=== PATIENT | female | born 1955 | race Caucasian/White ===

== ENCOUNTER 2016-06-30 07:19 | Day surgery (SDC) | payer OTHER ==
[~2016-06-30] VITALS: Ht 165.1 cm; Wt 72.1 kg
--- NOTE | 2016-06-30 07:17 | PCM.HPANE ---
Patient Data Date of Service: Jun 30, 2016 Surgeon Admitting Provider: Attending Provider:Vic Parra MD Primary Care Physician:Bianca Kurtz MD Other Provider:Blossom Griffith Anesthesia Reason for Visit Left Ring Finger Mass Ht/WT & BMI Height (Feet): 5 Height (Inches): 5 Weight (Kilograms): 71.21 Body Mass Index 26.00 Allergies Coded Allergies: ibuprofen (Verified Allergy, Unknown, CONFUSION, 06/30/16) Uncoded Allergies: ADHESIVE TAPES (Allergy, Unknown, redness, 06/26/16) Past Anesthesia History Anesthesia History: Denies:: Abnormal Airway, Anesthesia Reactions, Difficult Intubation, Fam Anesthesia Reaction, Fam Malignant Hypertherm, Malignant Hyperthermia Diabetes History Hx Diabetes?: No MRSA MRSA: No Medications Hypertension Medication: No Home Meds Incl Beta Jose: No Reported Medications Triamcinolone Acetonide (Nasacort)10.8 Ml Spray10.8 Ml NS PRN For Congestion 06/26/16 Sumatriptan (Imitrex)100 Mg Qugonn634 Mg PO PRN mirgraines My repeat x1/NTE 200mg/24hrs 06/26/16 Fexofenadine (Lorene Allergy)180 Mg Tphxyb152 Mg PO DAILY Ref 0 06/26/16 Discontinued Reported Medications Multivitamin (Multi Vitamin Daily)1 Each Tablet1 Each PO DAILY 30 Days Ref 0 06/26/16 Ranitidine 300 Mg Qayguar781 Mg PO DAILY Ref 0 06/26/[address] 40 Mg Tablet.dr40 Mg PO DAILY Ref 0 06/26/16 Cetirizine HCl (Zyrtec)10 Mg Dcmrjvw40 Mg PO HS #30 CAPSULE Ref 0 06/26/16 Cetirizine HCl (Zyrtec)10 Mg Ymxulmy66 Mg PO HS #30 CAPSULE Ref 0 05/11/15 Multivitamin (Once Daily)1 Each Tablet1 Each PO DAILY 05/11/15 Ranitidine 300 Mg Swwzajz657 Mg PO DAILY Ref 0 05/11/[address] 40 Mg Tablet.dr40 Mg PO DAILY Ref 0 05/11/15 Triamcinolone Acetonide (Nasacort)10.8 Ml Spray10.8 Ml NS DAILY 05/11/15 Sumatriptan Succinate (Imitrex)50 Mg Lqjgzu03-95 Mg PO Q24 PRN For Headache 01/24/14 History History of ENT Problems?: Yes HEENT History: Positive for:: Sinus Problem Denies:: Abnormal Airway Cataracts Difficult Intubation Dysphagia Hearing Problem Hx of Heart Problems?: Yes Cardiovascular History: Positive for:: Chest Pain (work up in 2013) Denies:: AICD Atrial Fibrillation Cardiac Surgery Congestive Heart Failure Edema Heart Murmur Hypertension Irregular Heartbeat Pacemaker Thrombophlebitis Valvular Heart Disease (echo 2013- ef 60-65%) Other Cardiac History: hx of hemachromatosis, being managed by PCP at [facility] Other History/Comments S/P [place] 2013 w/o intervention. Subsequent (02/01) TTE demonstrates 60-65% EF without WMA. Pt denies interim Sx or requirement for NTG. Hx of Respiratory Problem?: No Respiratory History: Positive for:: Dyspnea (a pressure in my chest with activity) Denies:: Asthma COPD Chest Surgery Cough Emphysema Hemoptysis Oxygen Administration Pneumonia Tuberculosis Use of C-PAP Machine Hx Neurologic Problems?: Yes Neurological History: Positive for:: Dizziness (past hx of) Headaches (migraines weekly) Denies:: Alzheimer's Disease CVA Dementia Multiple Sclerosis Parkinson's Disease Seizures Hx of GI Problems?: Yes Gastrointestinal History: Positive for:: Gall Bladder Disease (removed) Gastroesphageal Reflux Denies:: Cirrhosis Diverticulitis Gastrointestinal Bleeding Heartburn Hepatitis Hiatal Hernia Rectal Bleeding Hx of Problems?: No Genitourinary History: Denies:: HX of Hemodialysis Kidney Stones Urinary Tract Infection HX of Peritoneal Dialysis: No Female Hx: Positive for:: Endometriosis (hysterectomy) Problems with Breasts? (biopsy on Left precancerous) Denies:: Currently (hysterectomy) Pelvic Inflammatory Skin History: Denies:: History Skin Disorders? Pressure Ulcers Hx Musculoskeletal Problems?: Yes Musculoskeletal History: Positive for:: Back Injury (lower back; going to PT ) Musculoskeletal Trauma (left ring finger mass current admission problem) Denies:: Joint Replacement Myasthenia Gravis Hx of Psycho/Social Problems?: Yes Psycho Social History: Positive for:: Anxiety Hx Depression Denies:: Bipolar Disorder Suicide Attempt Hx Surgeries?: Yes (HYSTERECTOMY, GALLBLADDER, BREAST BX X2, R SHOULDER) Hx Any Other Health Problems?: Yes Other History: Positive for:: Cancer (pre-cancerous) Denies:: Endocrine Disease Hospitalization Thyroid Disease History Blood Transfusions: Denies:: Blood Transfuse Reaction Blood Transfusions Hx Diabetes: No Hx Alcohol Use: NoHx Substance Use: No Smoking Status: Never Smoker Have You Smoked inLast 12 mo: No Stop/Bang Treated for Sleep Apnea?: No Do You Have a CPAP Machine?: No P-Blood Pressure: treated: No B- Body Mass Index > 35 kg/m2: No A- Age over 50: Yes N- Neck Large Circumference: No G- Gender Male: No SAMUEL Risk Assessment: Low Risk, <3 Yes SAMUEL Category 4 OutPt Procedure: Yes Risk Assessment Category Category 1A: Patient has history of documented sleep apnea, and HAS NOT received any narcotic, sedative or anesthesia administration during this stay. Category 1B: Patient has history of documented sleep apnea, and HAS received any narcotic , sedative or anesthesia administration during this stay Category 2: Patient has SUSPECTED Obstructive Sleep Apnea, and HAS received any narcotic , sedative or anesthesia administration during this stay. Category 3: Patient has SUSPECTED Obstructive Sleep Apnea and HAS NOT received narcotic, sedative or anesthesia administration during this stay. Category 4: Outpatient in Procedural Areas with known sleep apnea or who screen positive for High Risk via the STOP/BANG questionnaire. Exam Exam General Appearance: Alert, Oriented X3, Cooperative, No Acute Distress HEENT/AIRWAY: MP 2 Lungs: Clear to Auscultation, Normal Air Movement Heart: Exam Unremarkable, Normal S1, Normal S2 Plan Impression Patient chart reviewed, patient interviewed and anesthestic plan with risks, benefits, and alternatives discussed, and informed consent obtained. ASA Physical Status: ASA2 Mod Systemic Disease Anesthetic Plan: GA Bene/Risks/Altern/Consents: Yes HP Complete Prior to Induction: Yes Tutu Moncada DO Jun 30, 2016 07:17
[~2016-06-30 07:19] MED LIST: CETI10CA PO; CeFAZolin Inj 2 GM in IV Premix 1 EACH IV ONE; FEXO180T85 PO; IMI100 PO; MULT-1018 PO; PANT40TA3 PO; RANI300C PO; TRIA10.8 NS
[2016-06-30] MEDS ORDERED: fentaNYL-PF 50 mCg/mL 2 mL Inj ONE (07:20)
[2016-06-30] MEDS ORDERED: Dexamethasone 4 mg/mL Inj ONE (07:20)
[2016-06-30] MEDS ORDERED: Propofol 10,000 mCg/mL 20 mL Inj ONE (07:20)
[2016-06-30] MEDS ORDERED: Ondansetron 2 mg/mL 2 mL Inj ONE (07:20)
[2016-06-30] MEDS: Lactated Ringer's 1,000 ML IV SCH ×2 (07:33→09:00)
[2016-06-30 07:45] VITALS: BP 137/78; PULSE 90; RESP 14; O2SAT 97
[2016-06-30] MEDS ORDERED: Lactated Ringer's 500 ML IV PRN (08:37)
[2016-06-30] MEDS ORDERED: Lactated Ringer's 1,000 ML IV SCH (08:37)
[2016-06-30] MEDS ORDERED: Dexamethasone 4 mg/mL Inj IVPUSH PRN (08:40)
[2016-06-30] MEDS ORDERED: HYDROmorphone 1 mg/mL Inj IVPUSH PRN (08:40)
[2016-06-30] MEDS ORDERED: fentaNYL-PF 50 mCg/mL 2 mL Inj IVPUSH PRN (08:40)
[2016-06-30] MEDS ORDERED: Labetalol 5 mg/mL 4 mL Inj IV PRN (08:40)
[2016-06-30] MEDS ORDERED: Phenylephrine 10,000 mCg/mL Inj IVPUSH PRN (08:40)
[2016-06-30] MEDS ORDERED: EPHEDrine Sulfate 50 mg/mL Inj IVPUSH PRN (08:40)
[2016-06-30] MEDS ORDERED: Ondansetron 2 mg/mL 2 mL Inj IVPUSH PRN (08:40)
[2016-06-30] MEDS ORDERED: Atropine 0.4 mg/mL Inj IVPUSH PRN (08:40)
[2016-06-30] MEDS ORDERED: MetoCLOpramide 5 mg/mL 2 mL Inj IVPUSH PRN (08:40)
[2016-06-30] MEDS ORDERED: Bupivacaine-MPF 0.5% 30 mL Inj INFILTRATE ONE (09:30)
[2016-06-30] MEDS ORDERED: Lactated Ringer's 1,000 ML IV ONE (10:18)
[2016-06-30 10:30] VITALS: BP 125/77; PULSE 61; RESP 18; O2SAT 100
[2016-06-30] MEDS ORDERED: oxyCODONE-Acetamin 5-325 mg Tablet PO PRN (11:00)
[2016-06-30 11:11] VITALS: BP 130/74; PULSE 60; RESP 18; O2SAT 99
--- NOTE | 2016-06-30 11:41 | PCM.ANEP1 ---
Post Anesthesia Phase 1 PACU Phase 1 Assessment Date of Service: Jun 30, 2016 Vital Signs Vital Signs Date Time Temp Pulse Resp B/P Pulse Ox O2 Delivery O2 Flow Rate FiO2 06/30/16 11:11 60 18 130/74 99 Room Air 06/30/16 10:30 36.0 61 18 125/77 100 Room Air 06/30/16 07:45 36.3 90 14 137/78 97 Room Air Anesthetic Administered: MAC Level of Alertness: Awake, talking CORTES's with Equal Strength: Yes Pain: No Nausea or Vomiting: No Oxygen Delivery: Room Air Lungs: Clear to Auscultation, Normal Air Movement Dermatome Level: Full Sensation Tutu Moncada DO Jun 30, 2016 11:41
--- NOTE | 2016-06-30 12:08 | OP ---
[address] [address] OPERATIVE REPORT PATIENT: LEDA SIMMONS : 1955 MR#: [id number] ADMIT: 06/30/2016 JOB ID: [id number] DATE OF SURGERY: 06/30/2016 PREOPERATIVE DIAGNOSIS(ES): Left ring finger soft tissue mass. ICD-10 code R22.32. POSTOPERATIVE DIAGNOSIS(ES): Left ring finger soft tissue mass. ICD-10 code R22.32. PROCEDURE: Removal of left ring finger soft tissue mass distal phalanx. SURGEON: Vic Parra MD WAGE AND SALARY SPECIALIST: None. ANESTHESIA: IV sedation with metacarpal nerve block performed by surgeon for anesthesia and postoperative analgesia. ESTIMATED BLOOD LOSS: 2 mL. DRAINS: None. COMPLICATIONS: None. SPECIMEN: Sent to pathology. COUNTS: Sponge and needle count correct. INDICATIONS: This is a 61-year-old female with a painful mass over the volar aspect of her left ring finger distal phalanx. The patient has an area of hypersensitivity of the finger as well when pressing on the mass. DESCRIPTION OF PROCEDURE: Under adequate IV sedation, a well-padded tourniquet was applied to the left upper extremity. After appropriate time-out was called and under adequate IV sedation, I performed a metacarpal nerve block with 0.5% plain Marcaine. The arm was then prepped and draped in sterile fashion. The arm was elevated, exsanguinated, tourniquet inflated to 250 mmHg. An oblique incision was fashioned over the distal phalanx over the mass itself. It was in the subcutaneous layer, and was noted to have a bluish discoloration or consistent with a vascular component. It was pressuring the area over the radial digital nerve to the finger. The nerve was protected and the mass was removed in its entirety. It measured about 5 x 8 mm, and it was then sent to Pathology. There was no damage to the neurovascular bundle or the flexor tendon. The wound was irrigated with saline. Tourniquet was released. Hemostasis was achieved. Wound was sutured with a few interrupted horizontal mattress sutures of 4-0 nylon. Xeroform, dry sterile bulky finger dressing was applied and wrapped around the wrist so that it would not slide off. The patient tolerated procedure well. She was taken to recovery in stable condition. Sponge and needle count correct. No complications. PLAN: The patient needs to keep the finger clean and dry and the dressing intact. We will see her back in follow up in two weeks with suture removal. Will await final results from Pathology. CC: DANDY- Orthopedics CC: Jeanette Fernandez
--- NOTE | 2016-06-30 13:12 | PCM.ANEP2 ---
Post Anesthesia Evaluation ASA/CMS Post Anesthesia Date of Service: Jun 30, 2016 VS in Patient's Normal Range?: Yes Resp Stable; Airway Patent?: Yes CV Function & Hydration Stable: Yes Mental Status Recovered?: Yes Pain control Satisfactory?: Yes N/V Control Satisfactory?: Yes Tutu Moncada DO Jun 30, 2016 13:11
--- NOTE | 2016-07-03 14:07 | PATH ---
SURGICAL PATHOLOGY Attending Physician:Erma Ureña CASE STATUS: Signed Out PATIENT NAME: LEDA SIMMONS PID: [id number] : 1955 DATE COLLECTED:06/30/2016 21:58 SPECIMEN: Soft Tissue Mass, Biopsy CLINICAL HISTORY: RING FINGER MASS 1). FINGER MASS LEFT RING FINGER FINAL DIAGNOSIS: 1.SOFT TISSUE MASS, LEFT RING FINGER: THROMBOSED VARIX. NO EVIDENCE OF MALIGNANCY OR DYSPLASIA. ICD10 CODE D18.01 GROSS DESCRIPTION: Received in formalin, labeled with the patient' s name and "left ring finger mass", is one firm, brice-schneider tissue fragment measuring 0.5 x 0.4 x 0.3 cm. The fragment is inked, trisected, and totally submitted in cassette 1A. ([id number]) MICRO DESCRIPTION: See diagnosis. ICD-9 CODES: CPT CODES: 1: 80822 Electronically Signed Out Keyur Gooden MD [facility] [address], [place] [address] Technical component performed at [facility], [address], [place], [address]
== END 2016-06-30 23:59 | disposition home or self-care (01) ==
LOC: SAS 07:19
PROVIDERS: ATTEND Orthopaedic Surgery
DX: D21.12 Benign neoplasm of connective and other soft tissue of left upper limb, including shoulder (principal); G43.909 Migraine, unspecified, not intractable, without status migrainosus
CPT/HCPCS: 26115; J0690; J1100; J2250; J2405; J3010; J7120